=== PATIENT | female | born 1985 | race Caucasian/White ===

== ENCOUNTER 2016-04-25 17:14 | Emergency (ER) | payer OTHER ==
[~2016-04-25] VITALS: Ht 167.6 cm; Wt 130.4 kg
[~2016-04-25 17:14] MED LIST: FLEXERIL10 MG PO; FLEXERIL5 MG PO; INDOCIN50 MG PO; LORTAB 5-325 M1 EACH PO; MEDROL DOSEPAK4 MG PO; NAPROSYN500 MG PO; NORCO 7.5/321 TABLET PO; OMEPRAZOLE40 M1 PO; TRAMADOL HCL50 MG PO; ZOFRAN4 MG PO
[2016-04-25] MEDS ORDERED: KEFLEX500 MG PO (20:25)
[2016-04-25 21:02] VITALS: BP 137/98
== END 2016-04-25 21:02 | disposition home or self-care (01) ==
LOC: EME 17:14
DX: S61.012A Laceration without foreign body of left thumb without damage to nail, initial encounter (principal); W26.0XXA Contact with knife, initial encounter; Y93.G1 Activity, food preparation and clean up
CPT/HCPCS: 99281; 99284